=== PATIENT | male | born 1975 | race Asian ===

== ENCOUNTER 2016-02-23 15:35 | Emergency (ER) | payer OTHER ==
[2016-02-23 16:12] VITALS: BP 121/84; PULSE 102; RESP 16; TEMP 98.4; O2SAT 97
--- NOTE | 2016-02-23 17:06 | UCPHY ---
H & P Patient Type: New Smoking Status: Current every day smoker Time Seen by Provider: 02/23/16 16:51 HPI/ROS: CHIEF COMPLAINT: Sinus congestion. Skin lesion in location of shaving HISTORY OF PRESENT ILLNESS: 40-year-old male in the urgent care with 2 complaints. 1st complaint is 1 week of sinus congestion. No cough. No sore throat. No nuchal rigidity. No fever no chills. He has not taken any lnmc-fou-syaozcb remedies. No dyspnea. No chest pain. 2nd complaint is 1 month of on and off lesions in his romano in areas where he shaves on his face. He shaves on a near daily basis and notes that these lesions continue. He has not attempted any kgqu-kpb-svsmecr remedies for folliculitis. No known history of MRSA REVIEW OF SYSTEMS: A ten point review of systems was performed and is negative with the exception of the items mentioned in the HPI PAST MEDICAL & SURGICAL HISTORY: No pertinent medical or surgical history SOCIAL HISTORY: nonsmoker PHYSICAL EXAM (Prior to examination, patient consented to physical exam, hands were washed and my usual and customary physical exam procedures followed) 1) GENERAL: Well-developed, well-nourished, alert and oriented. Appears to be in no acute distress. 2) HEAD: Normocephalic, atraumatic 3) HEENT: Pupils equal, round, reactive to light bilaterally. Sclera anicteric. Nasopharynx, oropharynx, clear, no lesions. No tonsillar enlargement no tonsillar exudate Ears bilaterally with normal tympanic membranes. 4) NECK: Full range of motion, no meningeal signs. 5) LUNGS: Clear auscultation bilaterally, no wheezes, no rhonchi, no retractions. 6) HEART: Regular rate and rhythm, no murmur, no heave, no gallop. 7) ABDOMEN: No guarding, no rebound, no focal tenderness, 8) MUSCULOSKELETAL: No peripheral edema or discoloration. 9) BACK: No CVA tenderness,. 10) SKIN: on the patient's face in location of his facial hair he has multiple discrete folliculitis like lesions all of which are less than 1 mm.. DIFFERENTIAL DIAGNOSIS: No particular include but not limited to folliculitis , carbuncle, furuncle (Armando Snyder) Constitutional: Initial Vital Signs Temperature (C) 36.9 C 02/23/16 16:09 Heart Rate 102 H 02/23/16 16:09 Respiratory Rate 16 02/23/16 16:09 Blood Pressure 121/84 H 02/23/16 16:09 O2 Sat (%) 97 02/23/16 16:09 O2 Delivery Mode Room Air Allergies/Adverse Reactions: No Known Allergies Allergy (Unverified 02/23/16 16:09) Home Medications: Medication Instructions Recorded NK [No Known Home Meds] 02/23/16 MDM/Departure - MDM ED Course/Re-evaluation: Regarding the patient's upper respiratory infection symptoms, I think his symptoms are more than likely secondary to acute viral etiology. I do not think that antibiotics are indicated. I do not think that chest x-ray indicated in the presence of clear lung sounds maintain normal saturations. I discussed and recommended pkuu-mxw-uqspdes nasal decongestant and other supportive therapy for upper respiratory infection. Regarding his facial lesions which are consistent with intermittent folliculitis. These are multiple small lesions. I do not think that starting the patient on oral antibiotics currently indicated I do not think that the benefits outweigh the risks and I think that he would respond well, and I think a trial of is appropriate, of netf-qjq-xfsyeyh topical folliculitis medications such as Bump Patrol. I discussed this with him and he is in agreement. ( Armando Snyder) The patient was evaluated and managed by the Physician Electrical Development Engineer/ Nurse Practitioner. My co-signature indicates that I have reviewed this chart and I agree with the findings and plan of care as documented. I am the secondary supervising physician. (Lee Ann Zavala) - Depart Disposition: Home, Routine, Self-Care Clinical Impression: Folliculitis barbae Sinusitis Qualifiers: Sinusitis location: maxillary Chronicity: acute Recurrence: non-recurrent Qualifier Code: (J01.00) Acute maxillary sinusitis, unspecified Condition: Good Instructions: Folliculitis (ED), Sinusitis (ED) Additional Instructions: Shaved your face after a warm shower, use a new sharp blade when you are shaving. Use a product such as Bump Patrol. Referrals: Quentin Ritter MD [Primary Care Provider] - 5-7 days, call for appt. - PQRS PQRS Measurement: n/a (Armando Snyder)
== END 2016-02-23 17:18 | disposition home or self-care (01) ==
LOC: CED 15:35
DX: J01.00 Acute maxillary sinusitis, unspecified (principal); L73.1 Pseudofolliculitis barbae
CPT/HCPCS: 87400-PO; 87880-PO; 99203-PO; G0463-PO

== ENCOUNTER 2016-03-25 12:32 | Emergency (ER) | payer OTHER ==
[2016-03-25 12:52] VITALS: BP 108/87; PULSE 103; RESP 18; TEMP 98.4; O2SAT 97
--- NOTE | 2016-03-25 13:18 | EDPHY ---
H & P Time Seen by Provider: 03/25/16 13:00 HPI/ROS: HPI: 40-year-old male presents to urgent care with chief concern facial redness , swelling, discomfort. Reports onset of symptoms initially December 2014. Reports acne associated with shaving with the same razor. He began to pick acne. Symptoms would worsen. He tried to pop several of these lesions over the past few days with tweezers. Reports increased redness, discomfort and mild swelling to these lesions on his face. Denies fever, chills, URI symptoms , shortness of breath, chest pain, abdominal pain, nausea, vomiting. No recent infections. No history of unusual infections. Immunocompetent. ROS:10 point review of systems is negative other than as stated in HPI Smoking Status: Current every day smoker Physical Exam: Vital signs reviewed by me General: Awake, alert, calm, cooperative. No acute distress. Head: Normalocephalic. Atraumatic. EENT: PERRLA. EOMI. No pallor or injection. Anicteric. No nystagmus. No injection. TMs intact bilaterally with normal landmarks. No rhinnorhea, nasal passages clear. Oropharynx without redness, exudates, or lesions. Tonsils 2+ bilaterally, no exudates. Neck: Supple, nontender. No lymphadenopathy. Full range of motion. No meningismus. Respiratory: Breathing unlabored. CV: Chest nontender, atraumatic. Heart rate regular. Neuro: Alert. Oriented x 3. Speech clear. Nonfocal cranial nerves throughout. Sensation intact all extremities. Skin: Skin warm, dry. Generalized scattered erythematous papular lesions to the face. There are several confluent larger lesions, 1 right lateral upper lip and 1 left cheek. There is no induration, fluctuance, significant swelling , or discharge of these lesions. They are intact. There is no drainage whatsoever. Extremities: Full range of motion in all 4 extremities. Strength 5+ all extremities. Constitutional: Initial Vital Signs Temperature (C) 36.9 C 03/25/16 12:48 Heart Rate 103 H 03/25/16 12:48 Respiratory Rate 18 03/25/16 12:48 Blood Pressure 108/87 H 03/25/16 12:48 O2 Sat (%) 97 03/25/16 12:48 O2 Delivery Mode Room Air Allergies/Adverse Reactions: No Known Allergies Allergy (Unverified 03/25/16 12:48) Home Medications: Medication Instructions Recorded Cephalexin [Keflex (RX)] 500 mg PO TID #21 cap 03/25/16 Mupirocin 2% [Bactroban 2%] 30 gm TP BID #1 oint 03/25/16 Sulfamethox/Tmp 800/160 mg 1 tab PO BID #14 tab 03/25/16 [Bactrim Ds] Medical Decision Making ED Course/Re-evaluation: 40-year-old male presents to urgent care with ongoing lesions to the face that he began picking with tweezers in the past several days that have worsened. I will prescribe both mupirocin, Bactrim and Keflex for this gentleman. I have given him a referral for Dermatology. Differential Diagnosis: Differential includes but is not limited to folliculitis, acne, impetigo Departure - Departure Disposition: Home, Routine, Self-Care Clinical Impression: Folliculitis Condition: Good Instructions: Folliculitis (ED) Additional Instructions: Plan: Take Keflex and Bactrim antibiotics as prescribed for 1 week Take an fvyl-aer-xpihphs probiotic and/or eat yogurt while taking this antibiotic. Use mupirocin ointment to lesions of face that are concerning to you twice daily for the next week Follow up with Dr. Morgan listed in your paperwork next week--When you call to schedule appointment, please let the office know you are an "ER follow up" appointment" Do not pick lesions. For fever or other concerning symptoms follow up promptly with primary care or return here for recheck Referrals: Chaparrita Proctor DO [Primary Care Provider] - As per Instructions CLEO MORGAN [Medical Doctor] - As per Instructions Prescriptions: Sulfamethox/Tmp 800/160 mg [Bactrim Ds] 1 tab PO BID #14 tab Mupirocin 2% [Bactroban 2%] 30 gm TP BID #1 oint Cephalexin [Keflex (RX)] 500 mg PO TID #21 cap
--- NOTE | 2016-03-25 15:02 | UCPHY ---
H & P Patient Type: Established HPI/ROS: H & P Time Seen by Provider: 03/25/16 13:00 HPI/ROS: HPI: 40-year-old male presents to urgent care with chief concern facial redness , swelling, discomfort. Reports onset of symptoms initially December 2014. Reports acne associated with shaving with the same razor. He began to pick acne. Symptoms would worsen. He tried to pop several of these lesions over the past few days with tweezers. Reports increased redness, discomfort and mild swelling to these lesions on his face. Denies fever, chills, URI symptoms , shortness of breath, chest pain, abdominal pain, nausea, vomiting. No recent infections. No history of unusual infections. Immunocompetent. ROS:10 point review of systems is negative other than as stated in HPI Smoking Status: Current every day smoker Physical Exam: Vital signs reviewed by me General: Awake, alert, calm, cooperative. No acute distress. Head: Normalocephalic. Atraumatic. EENT: PERRLA. EOMI. No pallor or injection. Anicteric. No nystagmus. No injection. TMs intact bilaterally with normal landmarks. No rhinnorhea, nasal passages clear. Oropharynx without redness, exudates, or lesions. Tonsils 2+ bilaterally, no exudates. Neck: Supple, nontender. No lymphadenopathy. Full range of motion. No meningismus. Respiratory: Breathing unlabored. CV: Chest nontender, atraumatic. Heart rate regular. Neuro: Alert. Oriented x 3. Speech clear. Nonfocal cranial nerves throughout. Sensation intact all extremities. Skin: Skin warm, dry. Generalized scattered erythematous papular lesions to the face. There are several confluent larger lesions, 1 right lateral upper lip and 1 left cheek. There is no induration, fluctuance, significant swelling , or discharge of these lesions. They are intact. There is no drainage whatsoever. Extremities: Full range of motion in all 4 extremities. Strength 5+ all extremities. Constitutional: Initial Vital Signs Temperature (C) 36.9 C 03/25/16 12:48 Heart Rate 103 H 03/25/16 12:48 Respiratory Rate 18 03/25/16 12:48 Blood Pressure 108/87 H 03/25/16 12:48 O2 Sat (%) 97 03/25/16 12:48 O2 Delivery Mode Room Air Allergies/Adverse Reactions: No Known Allergies Allergy (Unverified 03/25/16 12:48) Home Medications: Medication Instructions Recorded Cephalexin [Keflex (RX)] 500 mg PO TID #21 cap 03/25/16 Mupirocin 2% [Bactroban 2%] 30 gm TP BID #1 oint 03/25/16 Sulfamethox/Tmp 800/160 mg 1 tab PO BID #14 tab 03/25/16 [Bactrim Ds] Medical Decision Making ED Course/Re-evaluation: 40-year-old male presents to urgent care with ongoing lesions to the face that he began picking with tweezers in the past several days that have worsened. I will prescribe both mupirocin, Bactrim and Keflex for this gentleman. I have given him a referral for Dermatology. Differential Diagnosis: Differential includes but is not limited to folliculitis, acne, impetigo Departure - Departure Disposition: Home, Routine, Self-Care Clinical Impression: Folliculitis Condition: Good Instructions: Folliculitis (ED) Additional Instructions: Plan: Take Keflex and Bactrim antibiotics as prescribed for 1 week Take an jlss-jdt-sicefoi probiotic and/or eat yogurt while taking this antibiotic. Use mupirocin ointment to lesions of face that are concerning to you twice daily for the next week Follow up with Dr. Morgan listed in your paperwork next week--When you call to schedule appointment, please let the office know you are an "ER follow up" appointment" Do not pick lesions. For fever or other concerning symptoms follow up promptly with primary care or return here for recheck Referrals: Chaparrita Proctor DO [Primary Care Provider] - As per Instructions CLEO MORGAN [Medical Doctor] - As per Instructions Prescriptions: Sulfamethox/Tmp 800/160 mg [Bactrim Ds] 1 tab PO BID #14 tab Mupirocin 2% [Bactroban 2%] 30 gm TP BID #1 oint Cephalexin [Keflex (RX)] 500 mg PO TID #21 cap Smoking Status: Current every day smoker Constitutional: Initial Vital Signs Temperature (C) 36.9 C 03/25/16 12:48 Heart Rate 103 H 03/25/16 12:48 Respiratory Rate 18 03/25/16 12:48 Blood Pressure 108/87 H 03/25/16 12:48 O2 Sat (%) 97 03/25/16 12:48 O2 Delivery Mode Room Air Allergies/Adverse Reactions: No Known Allergies Allergy (Unverified 03/25/16 12:48) Home Medications: Medication Instructions Recorded Cephalexin [Keflex (RX)] 500 mg PO TID #21 cap 03/25/16 Mupirocin 2% [Bactroban 2%] 30 gm TP BID #1 oint 03/25/16 Sulfamethox/Tmp 800/160 mg 1 tab PO BID #14 tab 03/25/16 [Bactrim Ds] Departure - Departure Disposition: Home, Routine, Self-Care Clinical Impression: Folliculitis Condition: Good Instructions: Folliculitis (ED) Additional Instructions: Plan: Take Keflex and Bactrim antibiotics as prescribed for 1 week Take an nuie-rda-vigwjis probiotic and/or eat yogurt while taking this antibiotic. Use mupirocin ointment to lesions of face that are concerning to you twice daily for the next week Follow up with Dr. Morgan listed in your paperwork next week--When you call to schedule appointment, please let the office know you are an "ER follow up" appointment" Do not pick lesions. For fever or other concerning symptoms follow up promptly with primary care or return here for recheck Referrals: CLEO MORGAN [Medical Doctor] - As per Instructions Chaparrita Proctor DO [Primary Care Provider] - As per Instructions Prescriptions: Sulfamethox/Tmp 800/160 mg [Bactrim Ds] 1 tab PO BID #14 tab Mupirocin 2% [Bactroban 2%] 30 gm TP BID #1 oint Cephalexin [Keflex (RX)] 500 mg PO TID #21 cap - PQRS PQRS Measurement: Not applicable
== END 2016-03-25 13:34 | disposition home or self-care (01) ==
LOC: CED 12:32
DX: M79.89 Other specified soft tissue disorders (principal); L98.9 Disorder of the skin and subcutaneous tissue, unspecified; Z72.0 Tobacco use
CPT/HCPCS: G0463-PO

== ENCOUNTER 2016-04-01 10:33 | Emergency (ER) | payer OTHER ==
[2016-04-01 10:55] VITALS: BP 122/75; PULSE 75; RESP 18; TEMP 89; O2SAT 97
--- NOTE | 2016-04-01 11:47 | UCPHY ---
H & P Time Seen by Provider: 04/01/16 11:23 Patient Type: Established HPI/ROS: This patient has a rash in his neck describes as itching and mildly burning. He explains that he just finished a 1 week course of Keflex that he was started on for folliculitis to his face. He reports that the rash is face is improved. However he still has some ongoing symptoms. He explains initially had 1 or 2 lesions and then shaved over the lesions that he thought was that is and reports onset of further rash similar to the initial to lesions thereafter. This current symptoms denies any other associated allergic symptoms. ROS: No deep constitutional complaints including no fever. HEENT: No intraoral lesions Integumentary: No rash elsewhere. Cardiovascular: No lightheadedness. Pulmonary: No wheezing. 7 point ROS is otherwise negative. Past Medical/Surgical History: Otherwise healthy. Smoking Status: Never smoked Physical Exam: Physical Exam Vital signs are normal. General: No acute distress HEENT: Oropharynx is clear with no angioedema or intraoral lesions. Eyes: Pupils equal and react to light. Extraocular motions are intact. Skin: Patient has multiple ulcerative and mild papular lesions to his face does appear consistent with folliculitis. There is no petechia or purpura. No fluctuant lesions are evident. He also has a mild confluent erythematous papular lesion anterior neck that could appears consistent with urticaria Lungs: Clear to auscultation bilaterally. No respiratory distress. Cardiac: Brisk capillary refill is intact throughout. Neuro: Alert and oriented x3 with no sensorimotor deficits. Initial differential diagnosis: Allergic drug rash, doubt worsening cellulitis , evidence of persistent folliculitis Constitutional: Initial Vital Signs Temperature (C) 31.6 C L 04/01/16 10:53 Heart Rate 75 04/01/16 10:53 Respiratory Rate 18 04/01/16 10:53 Blood Pressure 122/75 H 04/01/16 10:53 O2 Sat (%) 97 04/01/16 10:53 O2 Delivery Mode Room Air Allergies/Adverse Reactions: No Known Allergies Allergy (Unverified 03/25/16 12:48) Home Medications: Medication Instructions Recorded Cephalexin [Keflex (RX)] 500 mg PO TID #21 cap 03/25/16 Mupirocin 2% [Bactroban 2%] 30 gm TP BID #1 oint 03/25/16 Sulfamethox/Tmp 800/160 mg 1 tab PO BID #14 tab 03/25/16 [Bactrim Ds] Doxycycline Hyclate [Vibramycin 100 mg PO BID #20 cap 04/01/16 100 MG (*)] predniSONE 40 mg PO DAILY #10 tab 04/01/16 MDM/Departure - [facility] ED Course/Re-evaluation: I counseled the patient regarding allergic drug rash. He will list Keflex is now allergy from [place] and will start him on doxycycline antibiotic and treat the current allergic rash with Benadryl if needed prednisone. There is no evidence of anaphylaxis, Tim Dg's syndrome or other concerning findings. - Depart Disposition: Home, Routine, Self-Care Clinical Impression: Allergic drug rash Condition: Good Instructions: Folliculitis (ED) Additional Instructions: Diagnosis: 1. Folliculitis 2. Drug rash (allergic) Plan: List Keflex as an allergy from now on Start doxycycline antibiotic [id number] mg per 6 hours as needed for neck rash Prednisone in addition if needed as prescribed. Follow up with Dr. Marinelli-nonprofit manager for recheck in 5-10 days. Good the emergency department for any significant worsening despite the treatment plan. Prescriptions: Doxycycline Hyclate [Vibramycin 100 MG (*)] 100 mg PO BID #20 cap predniSONE 40 mg PO DAILY #10 tab Referrals: Chaparrita Proctor DO [Primary Care Provider] - As per Instructions APVEL MARINELLI [Medical Doctor] - As per Instructions - PQRS PQRS Measurement: NA
== END 2016-04-01 12:25 | disposition home or self-care (01) ==
LOC: CED 10:33
DX: L73.9 Follicular disorder, unspecified (principal); T36.0X5A Adverse effect of penicillins, initial encounter
CPT/HCPCS: G0463-PO

== ENCOUNTER 2017-07-28 11:08 | Emergency (ER) | payer OTHER ==
--- NOTE | 2017-07-28 12:45 | EDPHY ---
H & P Smoking Status: Current every day smoker Time Seen by Provider: 07/28/17 12:07 HPI/ROS: CHIEF COMPLAINT: Cellulitis right leg HISTORY OF PRESENT ILLNESS: 41-year-old male presents to the emergency department with concerns about infection in his right leg. The patient was seen in urgent care yesterday with an area of redness just distal to his right knee. They tod a line around the area and he was started on clindamycin. He was told that if the redness or his pain got worse that he should come to the emergency department. ROS: Denies pain in his right knee, right hip or groin. (Magda Carroll) Past Medical/Surgical History: Negative (Magda Carroll) Social History: Single and lives in [place] (Magda Carroll) Physical Exam: On examination patient has area of redness just distal to his right knee. Does not involve his joint. There is no evidence of septic joint. There is no lymphangitis. It is minimally tender to palpate. No evidence of fluctuance or palpable abscess. No palpable bony tenderness. Normal gait. (Magda Carroll) Constitutional: Initial Vital Signs Temperature (C) 37.1 C 07/28/17 11:12 Heart Rate 99 07/28/17 11:12 Respiratory Rate 16 07/28/17 11:12 Blood Pressure 119/83 H 07/28/17 11:12 O2 Sat (%) 96 07/28/17 11:12 O2 Delivery Mode Room Air Allergies/Adverse Reactions: No Known Allergies Allergy (Unverified 03/25/16 12:48) Home Medications: Medication Instructions Recorded Clindamycin 1% 07/28/17 Doxycycline Hyclate [Doxycycline] 100 mg PO BID #14 cap 07/28/17 Retin-A 07/28/17 MDM/Departure - [facility] ED Course/Re-evaluation: I do not think imaging studies are indicated. There is no evidence of septic joint. He was given a prescription for clindamycin, however he did not fill this. He apparently has an allergy that to Keflex. Patient will be started on doxycycline. He was encouraged to apply warm compresses and told to return if he developed any pain in his right knee, right groin, or if he developed any fevers or chills or any other concerns. He was comfortable with this plan. (Magda Carroll) I did not see this patient while he was in the emergency department. However his care was discussed with PA while the patient was in the department. I agree with treatment plan and management (Anup Fernandes) - Depart Disposition: Home, Routine, Self-Care Clinical Impression: Cellulitis of right leg Condition: Good Instructions: Cellulitis (ED) Additional Instructions: Warm compresses 15-20 minutes every 2-3 hours especially today and tomorrow as discussed. Doxycycline as prescribed for 1 week. Return to the emergency department if you notice red streaking up your leg, pain in your right groin, fevers or chills, or if you feel worse in any way. Prescriptions: Doxycycline Hyclate [Doxycycline] 100 mg PO BID #14 cap Referrals: Chaparrita Proctor DO [Primary Care Provider] - 2-3 days, if not improved
[2017-07-28 13:03] VITALS: BP 115/70
== END 2017-07-28 13:03 | disposition home or self-care (01) ==
DX: L03.115 Cellulitis of right lower limb (principal); F17.200 Nicotine dependence, unspecified, uncomplicated